=== PATIENT | female | born 1995 | race Caucasian/White ===

== ENCOUNTER 2017-01-22 20:45 | Emergency (ER) | payer MEDICAID, OTHER ==
[~2017-01-22] VITALS: Ht 154.9 cm; Wt 74.5 kg
[~2017-01-22 20:45] MED LIST: ACET-2047 PO; NITR-58 PO
[2017-01-22 20:53] VITALS: Ht 154.9 cm; Wt 74.5 kg
[2017-01-22] MEDS ORDERED: LIDOCAINE/MYLANTA 40 ML BTL PO STA (23:08)
[2017-01-22] MEDS ORDERED: FAMOTIDINE 20 MG TAB PO STA (23:08)
[2017-01-22] MEDS ORDERED: ONDANSETRON (ODT) 4 MG TAB ODT STA (23:08)
--- NOTE | 2017-01-22 23:16 | ERD ---
ER Documentation Chief Complaint Date/Time DATE: 01/22/17 TIME: 23:14 Chief Complaint on and off chest/back pain x 5 days HPI Patient is a 22-year-old female who presents to the ED with epigastric pain on and off for the last 5 days. She states that the pain radiates to her upper back. She denies dysuria or urgency. She denies fever or chills. She denies chest pain, cough, shortness of breath or difficulty breathing. She denies headache or dizziness. She states that she has never had this in the past. She also complains of nausea with no vomiting. She is not taking any medication for her symptoms. ROS All systems reviewed and are negative except as per history of present illness. Medications Home Meds Active Scripts Acetaminophen* (Tylophen*) 500 Mg Capsule, 1 CAP PO Q6H Y for PAIN AND OR ELEVATED TEMP, #20 CAP Prov:ERIK DAVID PA-C 01/23/17 Famotidine* (Pepcid*) 20 Mg Tablet, 20 MG PO BID for 14 Days, TAB Prov:ERIK DAVIDC 01/23/17 Ondansetron Hcl* (Zofran*) 4 Mg Tablet, 4 MG PO Q6H for NAUSEA AND/OR VOMITING, #30 TAB Prov:ERIK DAVID PA-C 01/23/17 Acetaminophen* (Acetaminophen*) 650 Mg Tablet, 650 MG PO Q4H Y for PAIN AND OR ELEVATED TEMP, #15 TAB Prov:CHO,RONN 04/27/15 Nitrofurantoin Monohyd Macrocr* (Macrobid*) 100 Mg Capsr, 100 MG PO BID for 7 Days, CAP Prov:CHO,RONN 04/27/15 Allergies Allergies: Coded Allergies: No Known Drug Allergies (Verified Allergy, Unknown, 01/22/17) PMhx/Soc History of Surgery: No Anesthesia Reaction: No Hx Neurological Disorder: No Hx Respiratory Disorders: No Hx Cardiac Disorders: No Hx Psychiatric Problems: No Hx Miscellaneous Medical Probl: No Hx Alcohol Use: No Hx Substance Use: No Hx Tobacco Use: No FmHx Family History: No coronary disease, No diabetes, No other Physical Exam Vitals Vital Signs Date Time Temp Pulse Resp B/P Pulse Ox O2 Delivery O2 Flow Rate FiO2 01/22/17 20:53 97.9 64 20 122/66 100 Physical Exam GENERAL: Well-developed, well-nourished female. Appears in no acute distress. HEAD: Normocephalic, atraumatic. EYES: Pupils are equally reactive bilaterally. EOMs grossly intact. No conjunctival erythema. ENT: Moist mucous membranes. No uvula deviation. No kissing tonsils. No exudates. NECK: Supple. No lymphadenopathy or thyromegaly. No meningismus. negative kernig. negative brudinski. LUNG: Clear to auscultation bilaterally. No rhonchi, wheezing, rales or coarse breath sounds. HEART: Regular rate and rhythm. No murmurs, rubs or gallops. ABDOMEN: No scars, ecchymosis or rashes noted. Soft, , and nondistended. Positive bowel sounds in all four quadrants. No rebound tenderness, no guarding. (-) McBurneys point tenderness. No CVA tenderness. Tenderness in the epigastric region. Negative Yeboah sign. SKIN: Normal color. Warm and dry. No rashes or lesions. Capillary refill < 2 seconds Result Diagram: 01/22/17 0000 01/22/17 0000 Results 24 hrs Laboratory Tests Test 01/22/17 00:00 01/22/17 23:40 White Blood Count 9.710^3/ul Red Blood Count 4.7910^6/ul Hemoglobin 13.0g/dl Hematocrit 39.8% Mean Corpuscular Volume 83.1fl Mean Corpuscular Hemoglobin 27.1pg Mean Corpuscular Hemoglobin Concent 32.7g/dl Red Cell Distribution Width 13.5% Platelet Count 56841^3/UL Mean Platelet Volume 10.7fl Neutrophils % 57.3% Lymphocytes % 31.6% Monocytes % 8.5% Eosinophils % 2.0% Basophils % 0.4% Nucleated Red Blood Cells % 0.0/100WBC Neutrophils # 5.510^3/ul Lymphocytes # 3.110^3/ul Monocytes # 0.810^3/ul Eosinophils # 0.210^3/ul Basophils # 0.010^3/ul Nucleated Red Blood Cells # 0.010^3/ul Sodium Level 138mmol/L Potassium Level 3.7mmol/L Chloride Level 106mmol/L Carbon Dioxide Level 26mmol/L Anion Gap 10 Blood Urea Nitrogen 9mg/dl Creatinine 0.64mg/dl Glucose Level 96mg/dl Calcium Level 9.0mg/dl Total Bilirubin 0.0mg/dl Direct Bilirubin 0.00mg/dl Indirect Bilirubin 0.0mg/dl Aspartate Amino Transf (AST/SGOT) 17IU/L Alanine Aminotransferase (ALT/SGPT) 27IU/L Alkaline Phosphatase 96IU/L Total Protein 7.6g/dl Albumin 4.4g/dl Globulin 3.20g/dl Albumin/Globulin Ratio 1.37 Lipase 106U/L Bedside Urine pH (LAB) 5.5 Bedside Urine Protein (LAB) 1+ Bedside Urine Glucose (UA) Negative Bedside Urine Ketones (LAB) Negative Bedside Urine Blood 1+ Bedside Urine Nitrite (LAB) Negative Bedside Urine Leukocyte Esterase (L Negative Current Medications Medications (Trade) Dose Ordered Sig/Mariah Route PRN Reason Start Time Stop Time Status Last Admin Dose Admin Famotidine (Pepcid) 20 mg ONCE STAT PO 01/22/17 23:08 01/22/17 23:09 DC 01/23/17 00:00 Miscellaneous Medication (Gi Cocktail (2)) 40 ml ONCE STAT PO 01/22/17 23:08 01/22/17 23:09 DC 01/23/17 00:01 Ondansetron HCl (Zofran Odt) 4 mg ONCE STAT ODT 01/22/17 23:08 01/22/17 23:09 DC 01/23/17 00:01 Procedures/MDM ER COURSE: I kept the patient and/or family informed of laboratory and diagnostic imaging results throughout the emergency room course. EKG, MONITORS, & DIAGNOSTIC IMAGING: [place] [id number] Radiology Main Line: [phone] DIAGNOSTIC IMAGING REPORT Patient: MARIEL MORRISON : 1995 Age: 22 Sex: F MR #: [id number] DOS: 01/22/17 2308 Ordering MD: ERIK DAVID PA-C Location: [facility] Room/Bed: PROCEDURE: US right upper quadrant CLINICAL INDICATION: Abdominal pain TECHNIQUE: Multiple real-time images were acquired of the patient's right upper abdomen utilizing a high resolution transducer. COMPARISON: None available FINDINGS: Liver: Normal in size, contour and echogenicity. Normal directional blood flow is seen within the patent main portal vein. The maximum dimension estimated at 18 cm . Gallbladder: Normal. No sonographic Yeboah's sign is reported. Common bile duct: Normal; 3.8 mm. There is no evidence for choledocholithiasis. Right Kidney: Normal; maximum length measured at approximately 10.9 cm. Pancreas: Visualized portions are normal. The tail is partially obscured by bowel gas. RPTAT:HJJR IMPRESSION: Normal right upper quadrant ultrasound. Physician Subhash Date Time Electronically viewed and signed by Physician Subhash on 01/23/2017 00:15 JR/ CC: ERIK DAVID PA-Zamzam EKG performed, read by Dr. Bridges 56bpm, sinus bradycardia normal axis, no acute ST segment changes, no T wave inversion PROCEDURES: GI cocktail, zofran, tolerated well. LAB INTERPRETATION: CBC showed no evidence of systemic infection or severe anemia. CMP showed no evidence of electrolyte abnormalities, severe acidosis, alkalosis, renal failure , or liver disease. Lipase showed no evidence of acute pancreatitis. UA showed no leukocyte esterase or nitrites. Urine test was negative. MEDICAL DECISION MAKING: This is a 22-year-old female who presents with epigastric pain 5 days. Vital signs were reviewed. Patient is afebrile. Patient is not hypoxic. Patient is not toxic or ill-appearing. Patient likely has epigastric pain of unknown etiology. Her ultrasound is read by radiologist was unremarkable. Patient stated improvement in symptoms after Zofran and GI cocktail. Low suspicion for ACS, AAA, perforated ulcer, bowel obstruction, cholecystitis, choledocholithiasis, cholangitis, pancreatitis, hepatic abscess, appendicitis, diverticulitis, gastroenteritis, hepatitis, peptic ulcer disease, HELLP syndrome. I reexamined patient after administration of medication and she stated improvement in symptoms and was ready to be discharged home. DISCHARGE: At this time, patient is stable for discharge and outpatient management with no new complaints during the ER course. Patient was sent home with Pepcid and Zofran and tylenol. Patient will be discharged home with instructions to recheck for new or worsening symptoms such as fever, nausea, weakness, LOC and to follow up with primary care in the next 1-2 days. Patient was advised to return to the ER for any new or worsening symptoms. Plan was discussed and patient and/or family understands and agrees. Home instructions were given. Departure Diagnosis: Primary Impression: Epigastric pain Condition: Stable ERIK DAVID PA-C Jan 22, 2017 23:15
[2017-01-22 23:39] LABS: URINE BLOOD (Dip) POC 1+ (NEGATIVE)
[2017-01-23 00:08] LABS: ADD SCAN DIFF NO
[2017-01-23 00:10] LABS: BASOPHILS % 0.4 % (0.0-2.0); EOSINOPHILS # 0.2 10^3/ul (0.0-0.5); HEMATOCRIT 39.8 % (37.0-47.0); LYMPHOCYTES # 3.1 10^3/ul (0.8-2.9); LYMPHOCYTES % 31.6 % (15.0-51.0); MEAN CORPUSCULAR HEMOGLOBIN 27.1 pg (29.0-33.0); MEAN CORPUSCULAR HGB CONC 32.7 g/dl (32.0-37.0); MEAN CORPUSCULAR VOLUME 83.1 fl (82.0-101.0); MEAN PLATELET VOLUME 10.7 fl (7.4-10.4); MONOCYTE # 0.8 10^3/ul (0.3-0.9); MONOCYTES % 8.5 % (0.0-11.0); NEUTROPHIL # 5.5 10^3/ul (1.6-7.5); NEUTROPHILS % 57.3 % (39.0-77.0); PLATELET COUNT 276 10^3/UL (140-415); RED BLOOD COUNT 4.79 10^6/ul (4.20-5.40); RED CELL DISTRIBUTION WIDTH 13.5 % (11.5-14.5); WHITE BLOOD COUNT 9.7 10^3/ul (4.8-10.8)
--- NOTE | 2017-01-23 00:15 | RADRPT ---
PROCEDURE: US right upper quadrant CLINICAL INDICATION: Abdominal pain TECHNIQUE: Multiple real-time images were acquired of the patient's right upper abdomen utilizing a high resolution transducer. COMPARISON: None available FINDINGS: Liver: Normal in size, contour and echogenicity. Normal directional blood flow is seen within the p atent main portal vein. The maximum dimension estimated at 18 cm . Gallbladder: Normal. No sonographic Yeboah's sign is reported. Common bile duct: Normal; 3.8 mm. There is no evidence for choledocholithiasis. Right Kidney: Normal; maximum length measured at approximately 10.9 cm. Pancreas: Visualized portions are normal. The tail is partially obscured by bowel gas. RPTAT:HJJR IMPRESSION: Normal right upper quadrant ultrasound. Physician Subhash Date Time Electronically viewed and signed by Physician Subhash on 01/23/2017 00:15 /
[2017-01-23 00:24] LABS: ALBUMIN 4.4 g/dl (3.3-4.9); ALBUMIN/GLOBULIN RATIO 1.37; CREATININE 0.64 mg/dl (0.44-1.00); POTASSIUM 3.7 mmol/L (3.5-5.1); TOTAL PROTEIN 7.6 g/dl (6.1-8.1)
[2017-01-23] MEDS ORDERED: NAPR-260 PO (00:47)
[2017-01-23] MEDS ORDERED: ONDA4TAB8 PO (00:47)
[2017-01-23] MEDS ORDERED: FAMO-18 PO (00:48)
[2017-01-23] MEDS ORDERED: ACET500C5 PO (00:48)
== END 2017-01-23 00:55 | disposition home or self-care (01) ==
LOC: FTE 20:45
DX: R10.13 Epigastric pain (principal)
CPT/HCPCS: 76705; 80053; 81003; 83690; 85025; 93005; Z7502; Z7610